=== PATIENT | female | born 1935 | race Caucasian/White ===

== ENCOUNTER 2017-05-02 12:29 | Outpatient (CLI) | payer OTHER | END 2017-05-02 20:36 | disposition home or self-care (01) | LOC: SMA 12:29 | PROVIDERS: ATTEND Family Medicine | DX: Z12.31 Encounter for screening mammogram for malignant neoplasm of breast (principal) | CPT/HCPCS: G0202 ==

== ENCOUNTER 2018-07-30 13:00 | Outpatient (CLI) | payer OTHER | END 2018-07-30 21:16 | disposition home or self-care (01) | LOC: SMA 13:00 | PROVIDERS: ATTEND General Practice | DX: Z12.31 Encounter for screening mammogram for malignant neoplasm of breast (principal) | CPT/HCPCS: 77067 ==

== ENCOUNTER 2019-09-01 03:43 | Inpatient (IN) | payer OTHER ==
[~2019-09-01] VITALS: Ht 160 cm; Wt 44.9 kg
[2019-09-01 03:50] VITALS: BP_SYST 163
[2019-09-01 04:49] LABS: BASOPHILS % (AUTO) 0.3 % (0.0-2.0); EOSINOPHILS % (AUTO) 0.3 % (0.0-4.0); HEMATOCRIT 38.5 % (36-48); HEMOGLOBIN 12.3 g/dL (12.0-16.0); LYMPHOCYTES # (AUTO) 1.3 K/uL (1.0-5.5); LYMPHOCYTES % (AUTO) 11.3 % (20.5-51.5); MEAN CORPUSCULAR HEMOGLOBIN 28 pg (27-31); MEAN CORPUSCULAR HGB CONC 32 % (32-36); MEAN CORPUSCULAR VOLUME 86 fL (79.0-98.0); MONOCYTES # (AUTO) 0.4 K/uL (0.0-1.0); MONOCYTES % (AUTO) 3.9 % (1.7-9.3); NEUTROPHILS # (AUTO) 9.3 K/uL (1.8-7.7); NEUTROPHILS % (AUTO) 84.2 % (40.0-70.0); PLATELET COUNT (AUTO) 269 K/uL (130-430); RED BLOOD CELL COUNT(AUTO) 4.45 MIL/uL (4.2-6.2); RED CELL DISTRIBUTION WIDTH 13.6 % (9.0-15.0); WHITE BLOOD COUNT (AUTO) 11.1 K/uL (4.8-10.8)
[2019-09-01 04:57] LABS: ANION GAP 9 (5-15); CALCIUM 8.9 mg/dL (8.4-11.0); CHLORIDE 102 mmol/L (98-107); CREATININE 0.82 mg/dL (0.55-1.30); GLUCOSE 140 mg/dL (70-99); POTASSIUM 3.7 mmol/L (3.5-5.1); SODIUM SERUM 134 mmol/L (136-145); UREA NITROGEN, BLOOD 33 mg/dL (8-21)
[2019-09-01 05:01] LABS: ALANINE AMINOTRANSFERASE 17 U/L (12-78); ALBUMIN 3.7 g/dL (3.4-4.8); ASPARTATE AMINOTRANSFERASE 27 U/L (10-37); LIPASE 189 U/L (73-393); TOTAL BILIRUBIN 0.5 mg/dL (0.0-1.0)
[2019-09-01] MEDS ORDERED: LEVOFLOXACIN 500 MG/D5W 100 ML IV ONE (07:45)
[2019-09-01] MEDS ORDERED: MORPHINE 4 MG/ML INJ. SYRINGE IVP ONE (08:15)
[2019-09-01] MEDS ORDERED: ONDANSETRON HCL 4 MG/2 ML VIAL IVP ONE ×2 (08:30→17:50)
[2019-09-01] MEDS ORDERED: ONDANSETRON HCL 4 MG/2 ML VIAL ONE (08:38)
[2019-09-01] MEDS ORDERED: METOCLOPRAMIDE HCL 10 MG/2 ML VIAL IVP PRN (09:30)
[2019-09-01] MEDS ORDERED: metroNIDAZOLE 500 mg/NS 100 ML IV SCH (09:30)
[2019-09-01] MEDS ORDERED: LEVOFLOXACIN 500 MG/D5W 100 ML IV SCH (09:30)
[2019-09-01] MEDS ORDERED: ONDANSETRON HCL 4 MG/2 ML VIAL IVP PRN ×2 (09:30→18:45)
[2019-09-01] MEDS: MORPHINE 2 MG/ML INJ. SYRINGE IVP PRN (10:15)
[2019-09-01] MEDS: D5NS 1,000 ML IV SCH ×2 (10:22→17:26)
[2019-09-01] MEDS ORDERED: POLY17PO4 PO (11:31)
[2019-09-01] MEDS ORDERED: VALP250S3 GT (11:31)
[2019-09-01] MEDS ORDERED: BACL10TA PO (11:31)
[2019-09-01] MEDS ORDERED: CLOB2.5O2 GT (11:33)
[2019-09-01 11:55] LABS: BILIRUBIN,URINE NEGATIVE (NEGATIVE); CLARITY/URINE SL CLOUDY (CLEAR); COLOR,URINE YELLOW (YELLOW); GLUCOSE,URINE NEGATIVE (NEGATIVE); KETONES,URINE TRACE (NEGATIVE); LEUKOCYTE ESTERASE ,URINE NEGATIVE (NEGATIVE); NITRITE, URINE POSITIVE (NEGATIVE); PROTEIN URINE TRACE (NEGATIVE); UROBILINOGEN,URINE 0.2 (0.2-1.0)
[2019-09-01 12:15] LABS: BLOOD, URINE TRACE (NEGATIVE)
[2019-09-01 12:23] LABS: WBC,URINE 0-3 /HPF (0-3)
[2019-09-01 12:24] LABS: BACTERIA,URINE MANY /HPF (None Seen)
[2019-09-01] MEDS: MORPHINE 4 MG/ML INJ. SYRINGE IVP PRN (13:29)
[2019-09-01] MEDS ORDERED: BENA20TA9 PO (15:11)
[2019-09-01 15:23] VITALS: BP_SYST 155
[2019-09-01 16:19] LABS: PROTHROMBIN TIME 10.4 SECS (9.5-12.5)
[2019-09-01] MEDS ORDERED: SEVOFLURANE 15 MIN GAS INH ONE (17:50)
[2019-09-01] MEDS ORDERED: BUPIVACAINE /EPINEPHRINE/PF 0.25% 30 ML VIAL INJ ONE (17:50)
[2019-09-01] MEDS ORDERED: LR 1,000 ML IV.SOLN IV ONE (17:50)
[2019-09-01] MEDS ORDERED: NS IRRIG SOLN 1000 ML IR ONE (17:50)
[2019-09-01] MEDS ORDERED: ROCURONIUM BROMIDE 10 MG/ML (ZEMURON) IV ONE (17:50)
[2019-09-01] MEDS ORDERED: MIDAZOLAM HCL 5 MG/5 ML VIAL IVP ONE (17:50)
[2019-09-01] MEDS ORDERED: fentaNYL CITRATE/PF 100 MCG/2 ML AMP IVP ONE (17:50)
[2019-09-01] MEDS ORDERED: PROPOFOL 200MG/ 20ML VIAL (DIPRIVAN) IV ONE (17:50)
[2019-09-01] MEDS ORDERED: fentaNYL CITRATE/PF 100 MCG/2 ML AMP IVP PRN ×2 (18:45)
[2019-09-01 18:52] VITALS: BP_SYST 155
[2019-09-01 20:45] VITALS: BP_SYST 143
[2019-09-01] MEDS: metroNIDAZOLE 500 mg/NS 100 ML IV SCH (22:13)
[2019-09-02 00:10] VITALS: BP_SYST 148
[2019-09-02] MEDS: MORPHINE 4 MG/ML INJ. SYRINGE IVP PRN (03:16)
[2019-09-02] MEDS: D5NS 1,000 ML IV SCH ×3 (03:17→21:30)
[2019-09-02] MEDS: metroNIDAZOLE 500 mg/NS 100 ML IV SCH ×3 (05:04→21:30)
[2019-09-02 06:40] LABS: ALANINE AMINOTRANSFERASE 42 U/L (12-78); ALBUMIN 2.4 g/dL (3.4-4.8); ANION GAP 6 (5-15); ASPARTATE AMINOTRANSFERASE 47 U/L (10-37); CALCIUM 7.7 mg/dL (8.4-11.0); CHLORIDE 105 mmol/L (98-107); CREATININE 0.68 mg/dL (0.55-1.30); GLUCOSE 122 mg/dL (70-99); POTASSIUM 3.4 mmol/L (3.5-5.1); SODIUM SERUM 135 mmol/L (136-145); TOTAL BILIRUBIN 0.5 mg/dL (0.0-1.0); UREA NITROGEN, BLOOD 16 mg/dL (8-21)
[2019-09-02 06:54] LABS: BASOPHILS % (AUTO) 0.3 % (0.0-2.0); EOSINOPHILS % (AUTO) 0.2 % (0.0-4.0); HEMATOCRIT 31.6 % (36-48); HEMOGLOBIN 10.3 g/dL (12.0-16.0); LYMPHOCYTES # (AUTO) 1.1 K/uL (1.0-5.5); LYMPHOCYTES % (AUTO) 8.8 % (20.5-51.5); MEAN CORPUSCULAR HEMOGLOBIN 28 pg (27-31); MEAN CORPUSCULAR HGB CONC 33 % (32-36); MEAN CORPUSCULAR VOLUME 86 fL (79.0-98.0); MONOCYTES % (AUTO) 8.4 % (1.7-9.3); NEUTROPHILS # (AUTO) 9.8 K/uL (1.8-7.7); NEUTROPHILS % (AUTO) 82.3 % (40.0-70.0); PLATELET COUNT (AUTO) 242 K/uL (130-430); RED CELL DISTRIBUTION WIDTH 13.4 % (9.0-15.0); WHITE BLOOD COUNT (AUTO) 11.9 K/uL (4.8-10.8)
[2019-09-02 08:10] VITALS: BP_SYST 127
[2019-09-02] MEDS: LEVOFLOXACIN 250 MG/D5W 50 ML IV SCH (09:40)
[2019-09-02] MEDS: MORPHINE 2 MG/ML INJ. SYRINGE IVP PRN (11:40)
[2019-09-02 14:30] VITALS: BP_SYST 147
[2019-09-02 16:19] VITALS: BP_SYST 150
[2019-09-02 20:00] VITALS: BP_SYST 145
[2019-09-03 00:31] VITALS: BP_SYST 140
[2019-09-03] MEDS: metroNIDAZOLE 500 mg/NS 100 ML IV SCH (05:16)
[2019-09-03] MEDS: D5NS 1,000 ML IV SCH (05:18)
[2019-09-03 07:51] VITALS: BP_SYST 163
[2019-09-03] MEDS: LEVOFLOXACIN 250 MG/D5W 50 ML IV SCH (09:12)
[2019-09-03] MEDS ORDERED: HYDR-4272 PO (12:59)
[2019-09-03 13:08] VITALS: BP_SYST 145
[2019-09-03 13:26] VITALS: BP_SYST 150
== END 2019-09-03 14:43 | disposition home or self-care (01) | DRG 418 ==
LOC: SED 03:43 → SMU 08:01 → STU 21:36 → SMU 09-03 11:29
PROVIDERS: ADMIT Internal Medicine Hospice and Palliative Medicine; ATTEND Internal Medicine Hospice and Palliative Medicine
PROC: 0FT44ZZ Resection of Gallbladder, Percutaneous Endoscopic Approach (ICD-10-PCS; principal; 2019-09-01 17:30)
DX: K80.00 Calculus of gallbladder with acute cholecystitis without obstruction (principal); E87.1 Hypo-osmolality and hyponatremia; Z96.612 Presence of left artificial shoulder joint; Z96.611 Presence of right artificial shoulder joint; I10 Essential (primary) hypertension; Z88.0 Allergy status to penicillin; Z79.899 Other long term (current) drug therapy
CPT/HCPCS: 36415; 71045; 80053; 81000-TC; 83690-TC; 85025; 85610-TC; 86886; 86900; 86901; 87040-TC; 87081; 93005; 93306; 96365; 96368; 96375; 96376; 99285; C1727; G0378; J1956; J2250; J2270; J2405; J2704; J2765; J3010; J3490; J7042; J7120

== ENCOUNTER 2020-12-28 13:55 | Outpatient (CLI) | payer OTHER ==
[~2020-12-28 13:55] MED LIST: BENA20TA9 PO; HYDR-4272 PO
== END 2020-12-28 20:35 | disposition home or self-care (01) ==
LOC: SMA 13:55
PROVIDERS: ATTEND General Practice
DX: Z12.31 Encounter for screening mammogram for malignant neoplasm of breast (principal)
CPT/HCPCS: 77067

== ENCOUNTER → 2022-01-16 | Outpatient (CLI) | payer OTHER ==
[~2022-01-16] MED LIST changes: +BENA-6 PO; -BENA20TA9 PO
== END | disposition home or self-care (01) ==
LOC: SMA 11:31
PROVIDERS: ATTEND Family Medicine
DX: Z12.31 Encounter for screening mammogram for malignant neoplasm of breast (principal); N64.89 Other specified disorders of breast
CPT/HCPCS: 77067

== ENCOUNTER 2023-05-31 15:14 | Emergency (ER) | payer OTHER ==
[~2023-05-31] VITALS: Ht 165.1 cm; Wt 43.1 kg
[2023-05-31 15:38] VITALS: BP_SYST 182; PULSE 78; RESP 18; TEMP 98.3; O2SAT 100
[2023-05-31] MEDS ORDERED: ACETAMINOPHEN 325 MG TABLET PO ONE (16:00)
[2023-05-31] MEDS ORDERED: cloNIDine HCL 0.1 MG TABLET ONE (16:12)
[2023-05-31 19:19] VITALS: BP_SYST 147; PULSE 78; RESP 18; TEMP 98.3; O2SAT 100
== END 2023-05-31 19:18 | disposition home or self-care (01) ==
LOC: SED 15:14
DX: S02.2XXA Fracture of nasal bones, initial encounter for closed fracture (principal); S09.90XA Unspecified injury of head, initial encounter; D32.0 Benign neoplasm of cerebral meninges; I16.0 Hypertensive urgency; Z88.0 Allergy status to penicillin; Z79.899 Other long term (current) drug therapy; W01.0XXA Fall on same level from slipping, tripping and stumbling without subsequent striking against object, initial encounter; Y93.89 Activity, other specified; Y92.89 Other specified places as the place of occurrence of the external cause; Y99.8 Other external cause status
CPT/HCPCS: 70450-TC; 70486-TC; 72125-TC; 76376; 99284

== ENCOUNTER → 2023-08-03 | Outpatient (CLI) | payer OTHER | END | disposition home or self-care (01) | LOC: SMA 13:05 | PROVIDERS: ATTEND Family Medicine | DX: Z12.31 Encounter for screening mammogram for malignant neoplasm of breast (principal) | CPT/HCPCS: 77067 ==